=== PATIENT | female | born 1955 | race Caucasian/White ===

== ENCOUNTER → 2019-02-12 | Outpatient (CLI) | payer OTHER ==
[~2019-02-12] MED LIST: AMLODIPINE BESY10 MG PO; BENICAR40 MG PO; BIOTIN5000 MCG PO; CALCIUM 600 +1 EA13 PO; CLEOCIN HCL150 MG PO; DAILY MULTIPLE1 EACH PO; ENOXAPARIN40 MG/0.1 SUBQ; NORCO 5-325 TA1 EACH PO; TRAMADOL 50 MG50 MG PO; VITAMIN C500 M1 PO; VITAMIN D310000 UNI1 PO
== END ==
LOC: M.MRI 11:23
DX: S83.241A Other tear of medial meniscus, current injury, right knee, initial encounter (principal); M25.761 Osteophyte, right knee; M17.11 Unilateral primary osteoarthritis, right knee; X58.XXXA Exposure to other specified factors, initial encounter; Y93.89 Activity, other specified; Y92.89 Other specified places as the place of occurrence of the external cause; Y99.8 Other external cause status

== ENCOUNTER → 2019-02-22 | Outpatient (CLI) | payer OTHER ==
[~2019-02-22] MED LIST changes: +PERCOCET 5-3251 EACH PO; +SENNA S TABLET1 EACH PO; +XARELTO10 MG PO
== END ==
LOC: M.LAB 11:26
DX: I10 Essential (primary) hypertension (principal)

== ENCOUNTER 2019-03-06 06:29 | Inpatient (IN) | payer OTHER ==
[2019-02-22 09:40] LABS: HEMATOCRIT 37.2 % (37.0-47.0); HEMOGLOBIN 12.7 gm/dL (12.0-15.0); MCH 31.1 pg (26.0-34.0); MCHC 34.2 g/dL (28.0-37.0); MCV 90.9 fL (80.0-100.0); MPV 7.6 fl. (7.2-11.1); RBC 4.09 mil/uL (4.20-5.00); WBC 5.1 thou/uL (4.0-11.0)
[2019-02-22 09:52] LABS: PROTIME 10.3 Seconds (9.20-11.50)
[2019-02-22 09:56] LABS: ALBUMIN 3.3 g/dL (3.4-5.0); CALCIUM 9.4 mg/dL (8.5-10.1); CREATININE 0.8 mg/dL (0.6-1.3); POTASSIUM 3.7 mmol/L (3.5-5.1); TOTAL BILIRUBIN 0.4 mg/dL (<0.1-1.0); TOTAL PROTEIN 7.4 g/dL (6.4-8.2)
[2019-02-22 10:01] LABS: URINE BILIRUBIN NEGATIVE (Negative); URINE BLOOD NEGATIVE (Negative); URINE CLARITY CLEAR; URINE COLOR YELLOW; URINE GLUCOSE-RANDOM NEGATIVE (Negative); URINE KETONES NEGATIVE (Negative); URINE LEUKOCYTES-REFLEX NEGATIVE (Negative); URINE NITRITE-REFLEX NEGATIVE (Negative); URINE PROTEIN NEGATIVE (Negative); URINE SPECIFIC GRAVITY 1.015 (1.005-1.030); URINE UROBILINOGEN 0.2 E.U./dl (0.2-1.0)
--- NOTE | 2019-02-22 10:34 | EKG ---
[place] [address] ELECTROCARDIOGRAM REPORT Name: SULTANASAMI RAMIREZ Room: PRE IN .R.#: [id number] Admission: Attend Phys: Narcisa Murphy Discharge: Date of : 57 Report #: [id number] THIS REPORT FOR: //name// [facility] Test Date: 2019-02-22 Test Time: 09:49:09 Pat Name: SAMI WEINBERG Department: Room: Gender: F Social Science Research Assistant: : 1955 Requested By: Tree Ordonez Order Number: [id number] Reading MD: Mj Tracy Measurements Intervals [place] Rate: 64 P: 28 NC: 169 QRS: 12 QRSD: 91 T: 43 QT: 406 QTc: 419 Interpretive Statements Sinus rhythm Compared to ECG 06/30/2016 09:08:02 No significant changes Electronically Signed On 02-22-2019 10:34:12 [employer] WORK[employer] by Mj Tracy [email or web address] <ELECTRONICALLY SIGNED> By: Mj Tracy MD, [facility] 02/22/19 1034 0949 [id number] Mj Tracy MD, FACC /EPI
[~2019-03-06] VITALS: Ht 170.2 cm; Wt 93.0 kg
[~2019-03-06 06:29] MED LIST changes: -PERCOCET 5-3251 EACH PO; -SENNA S TABLET1 EACH PO; -XARELTO10 MG PO
[2019-03-06 09:00] VITALS: BP 107/57
[2019-03-06 14:20] VITALS: BP 115/54
--- NOTE | 2019-03-06 15:13 | NUR ---
PT ADMITTED FROM SURGERY WITH RT TOAL KNEE WITH DR. MCKEON. PT ALERT AND ORINETED ON 3 LITERS O2 WITH CAPNO. PULSES 2+. LUNGS CLEAR AND DIMINISHED. DRESSING C/D/I. POLAR PACK IN PLACE. FALL RISK PRECAUTIONS IN PLACE. WILL CONTINUE TO MONITOR.
[2019-03-06 15:51] VITALS: BP 114/64
--- NOTE | 2019-03-06 17:34 | NUR ---
pt remained alert and oriented. pt resting in bed. pain meds given as ordered. fall risk precautions in place. hourly rounding completed. will continue to monitor.
[2019-03-06 21:20] VITALS: BP 120/59
[2019-03-07] VITALS: BP 113/64
[2019-03-07 04:00] VITALS: BP 117/63
--- NOTE | 2019-03-07 04:24 | NUR ---
PATIENT SLEPT THROUGH MOST OF SHIFT. SHE IS ABLE TO GET TO BEDSIDE COMMODE WITH ASSISTANCE. REQUESTED PAIN MEDICATION AT BEDTIME. HR IS RUNNING 48-55 CONTINUOUS AND MONITORED. CHECKED HER BACK FOR ANY SKIN BREAKDOWN HER SKIN WAS APPROPRIATE IN COLOR NO SIGNS OF SKIN ISSUES. SHE RECEIVED ABX AND FLUIDS ORDERED. HOURLY ROUNDS MADE. PLAN TO D/C TO HOME HEALTH WITHIN A DAY OR TWO. WILL CONTINUE TO FOLLOW PLAN OF CARE.
[2019-03-07 04:33] LABS: ABSOLUTE LYMPHOCYTES 1.2 thou/uL (0.8-5.3); ABSOLUTE MONOCYTES 1.2 thou/uL (0.0-1.2); ABSOLUTE NEUTROPHILS 7.1 thou/uL (1.6-8.1); BASOPHILS 0.3 %; EOSINOPHILS 0.1 %; HEMATOCRIT 29.9 % (37.0-47.0); HEMOGLOBIN 10.3 gm/dL (12.0-15.0); LYMPHOCYTES 12.7 %; MCHC 34.6 g/dL (28.0-37.0); MCV 89.6 fL (80.0-100.0); MONOCYTES 12.4 %; MPV 7.6 fl. (7.2-11.1); NUCLEATED RBCS 0 /100WBC; PLATELET COUNT* 248 thou/uL (150-400); POLYS 74.5 %; RBC 3.33 mil/uL (4.20-5.00); RDW-CV 12.6 % (10.5-14.5); WBC 9.5 thou/uL (4.0-11.0)
[2019-03-07 04:46] LABS: CALCIUM 8.5 mg/dL (8.5-10.1); CREATININE 0.7 mg/dL (0.6-1.3); MAGNESIUM 1.9 mg/dL (1.8-2.4); POTASSIUM 3.7 mmol/L (3.5-5.1)
[2019-03-07 10:34] VITALS: BP 78/43
[2019-03-07 13:00] VITALS: BP 129/65
[2019-03-07 13:10] VITALS: BP 124/68
--- NOTE | 2019-03-07 16:00 | NUR ---
SPOKE WITH PT.IN ROOM. UP IN RECLINER. SAID SHE WAS HAVING A FAIR AMOUNT OF PAIN TODAY. GOT LIGHTHEADED DURING THERAPY. BP WAS LOW AND SHE FELT LIKE SHE WAS GOING TO FALL. THERAPIST RIGHT THERE. SHE SAID SHE LIVES ALONE. IS NORMALLY INDEPENDENT. HAS AA WALKER, QUAD CANE,SINGLE POINT CANE,TUB BENCH AND GRAB BARS. SHE NORMALLY DOESN'T USE ANY DEVICE WHEN AMBULATING. SHE SAID SHE HAS ALOT OF STAIRS . NO ONE IS ABLE TO STAY WITH HER. WOULD LIKE TO GO TO SNF AT [facility]. SHE SAID A FRIEND HAS BEEN THERE AND LIKED IT. REFERRAL FAXED TO [facility].
--- NOTE | 2019-03-07 17:45 | NUR ---
ASSUMED CARE OF PATIENT AT APPROX 0730. ALERT AND ORIENTED X4. ASSESSMENT COMPLETED AND CHARTED. VSS ON ROOM AIR. PAIN MANAGED WITH ORAL PAIN MEDICATION. NO COMPLAINTS OF NAUSEA. PATIENT DIZZY WITH MORNING THERAPY. BLOOD PRESSURE LOW, SEE CHARTING, BOLUS OF LR GIVEN WITH IMPROVED BLOOD PRESSUR. ORTHOSTATICS OBTAINED CONSISTANT WNL. PATIENT WORKED WELL WITH THERAPIES THIS AFTERNOON AND PROGRESSED TOWARD GOALS. NO OTHER COMPLAINTS THIS SHIFT. FALL PRECAUTIONS IN PLACE. CALL LIGHT WITHIN REACH. HOURLY ROUNDS COMPLETED. WILL CONTINUE WITH PLAN OF CARE.
[2019-03-07 19:20] VITALS: BP 123/49
--- NOTE | 2019-03-07 22:51 | NUR ---
INITAL ASSESMENT COMPLETED AT 1919. PT PLEASANT AND COOPERATIVE. PT IN CPM AT THAT TIME AT 60 DEGREES. HS MEDS GIVEN PER EMAR. PRN OXYCODONE GIVEN WITH HS MEDS. O2 SAT ON ROOM AIR 100%. CALL LIGHT IN REACH, PT USING PROPERLY.
--- NOTE | 2019-03-07 22:52 | OP ---
[facility] [address] [place] [address] OPERATIVE REPORT Name: SAMI WEINBERG Room: [address] M.R.#: [id number] Admission: 03/06/19 Attend Phys: Narcisa Murphy Discharge: Date of : 57 Report #: [id number] THIS REPORT FOR: //name// CC: David Feliciano DATE OF SERVICE: 03/06/2019 PREOPERATIVE DIAGNOSIS: Right knee osteoarthritis. POSTOPERATIVE DIAGNOSIS: Right knee osteoarthritis. PROCEDURE: Right total knee arthroplasty. SURGEON: Tree Ordonez II, DO. HOCKEY PLAYER: VIRGILIO Teixeira. ANESTHESIA: General endotracheal. ESTIMATED BLOOD LOSS: 50 mL. ANTIBIOTICS: Vancomycin preoperatively due to positive MRSA nares swab. DRAINS: Medium Hemovac. COMPLICATIONS: None. CONDITION: The patient is stable to recovery room. IMPLANTS: Listed in operative record and progress note. BRIEF HISTORY: The patient was seen in the preoperative area. Preoperative H and P was performed. Site was marked, questions were answered. Risks and benefits were discussed with the patient in detail about surgery. The patient wished to proceed, assuming all risks. OPERATIVE PROCEDURE: The patient was taken to the operative suite and placed supine on the operative table, given appropriate anesthesia. A well-padded tourniquet was applied to the upper thigh, which was inflated to 300 mmHg after gravity exsanguination. The operative knee was sterilely prepped and draped. Surgery began by midline incision. This was carried down to the subcutaneous tissues. A medial parapatellar arthrotomy was performed and carried down to bone. The patella was everted and excess soft tissue removed around the femur. The femur would not extend past 10 degrees and would not flex past [address] [address] OPERATIVE REPORT Name: SAMI WEINBERG Room: [address] IN [facility]#: [id number] Admission: 03/06/19 Attend Phys: Narcisa Murphy Discharge: Date of : 57 Report #: [id number] during her range of motion while the patient was asleep, due to significant osteophyte as well as quadriceps tightness, a small VMO snip was performed over the superior and lateral aspect of the patellar tendon to allow for more appropriate access to the knee joint. After excess osteophytes were removed from around the femur, femoral cutting block was then applied, checked with a drop yordan for rotational alignment, pinned into appropriate position and appropriate cuts were made. A 4-in-1 cutting block was then applied, checked for rotational alignment, pinned in appropriate position and appropriate cuts were made. The tibia was then exposed. Excess meniscus was removed. Retractor was placed on collateral ligaments. The tibial cutting block was applied, pinned in appropriate position, checked with a drop yordan for rotational alignment and slope and appropriate cut was made. The tibial bone was removed. The tibial base plate was applied, checked for rotational alignment with the drop yordan and pinned in appropriate position. The femur was then applied and box cut was reamed. This was then trialed with appropriate spacer, which showed excellent fit and fill and excellent stability of knee through all range of motion. The patella was then reamed in appropriate fashion and sized to appropriate size. Three peg holes were drilled and it was then trialed and showed excellent flexion, extension, excellent tracking of the patella within the groove. These trials were removed. The tibia was punched in appropriate fashion. Bone ends were cleansed with Pulsavac irrigation and cement was mixed and applied to final implants. These were then malleted into position and held the knee in extension and compressed to allow cement to cure. After it cured, excess was removed utilizing Hemlock and osteotome. The wound was then copiously irrigated and the final spacer was then malleted into position. The tourniquet was deflated. Hemostasis was obtained with electrocautery. Pain cocktail was injected. PRP gel was sprayed throughout internal aspects of the knee. Medium Hemovac drain was applied. The capsule was closed with #2 FiberWire and #1 Vicryl in [id number] fashion. Skin was closed with 2-0 Vicryl and running 3-0 Monocryl. Dermabond and sterile dressing applied. Luis wrap and PolarCare applied. The patient transported to recovery room in stable condition. Counts were correct throughout the procedure. <ELECTRONICALLY SIGNED> By: Tree Ordonez II, DO 03/07/19 2252 [id number] Ordonez II, DO /nt
[2019-03-08 04:12] LABS: HEMATOCRIT 28.9 % (37.0-47.0); HEMOGLOBIN 9.8 gm/dL (12.0-15.0)
[2019-03-08 07:30] VITALS: BP 143/78
--- NOTE | 2019-03-08 11:00 | NUR ---
[facility] HERE TO VISIT PT. SHE SAID THEY CAN ACCEPT HER WHEN READY FOR DISCHARGE. SPOKE WITH . HE SAID PT.IS READY FOR DISCHARGE IF [facility] CAN OBTAIN AUTHORIZATION. NOTIFIED [facility] PER PHONE.
[2019-03-08] MEDS ORDERED: XARELTO10 MG PO (13:23)
[2019-03-08] MEDS ORDERED: SENNA S TABLET1 EACH PO (13:24)
--- NOTE | 2019-03-08 14:47 | NUR ---
[facility] CALLED AND CAN ACCEPT PT.TODAY. THEY OBTAINED INSURANCE AUTH FOR HER TO COME TO A SNF BED. PT.INFORMED. SHE WILL LET HER FAMILY KNOW. FAXED DISCHARGE ORDERS TO [facility]. [facility] ARRANGED FOR . CHART COPIED TO GO WITH PT. NURSING TO CALL REPORT.
[2019-03-08] MEDS ORDERED: PERCOCET 5-3251 EACH PO (15:34)
[2019-03-08 15:36] VITALS: BP 143/78
--- NOTE | 2019-03-08 18:27 | NUR ---
[facility] ARE OF PATIENT AT APPROX 0730. ALERT AND ORIENTED X4. ASSESSMENT COMPLETED AND CHARTED. VSS ON ROOM AIR. PAIN MANAGED WITH ORAL OXY. PATIENT UP WITH ONE USING GAIT BELT AND WALKER. WORKED WELL WITH THERAPIES AND PROGRESSED TOWARD GOALS. PATIENT DISCHARGED AT 1745 WITH ALL PERSONAL BELONGINGS, PRESCRIPTIONS AND DISCHARGE PACKET. REPORT CALLED TO RN AT [facility].
== END 2019-03-08 17:45 | DRG 470 ==
LOC: M.PRE → M.TBA 08:37 → M.ORTHSURG 08:37 → M.PRE 09:09 → M.ORTHSURG 14:01 → M.PRE 14:49 → M.ORTHSURG 03-08 17:45
PROVIDERS: Family Medicine; Orthopaedic Surgery; ADMIT Internal Medicine
PROC: 3E0T3BZ Introduction of Anesthetic Agent into Peripheral Nerves and Plexi, Percutaneous Approach (ICD-10-PCS; principal; 2019-03-06)
PROC: 0SRC0J9 Replacement of Right Knee Joint with Synthetic Substitute, Cemented, Open Approach (ICD-10-PCS; principal; 2019-03-06)
DX: M17.11 Unilateral primary osteoarthritis, right knee (principal); D62 Acute posthemorrhagic anemia; I95.2 Hypotension due to drugs; T40.695A Adverse effect of other narcotics, initial encounter; Y92.230 Patient room in hospital as the place of occurrence of the external cause; I50.9 Heart failure, unspecified; I11.0 Hypertensive heart disease with heart failure; Z96.642 Presence of left artificial hip joint; Z93.2 Ileostomy status; Z88.0 Allergy status to penicillin; Z88.8 Allergy status to other drugs, medicaments and biological substances; Z79.899 Other long term (current) drug therapy; Z98.84 Bariatric surgery status; Z90.49 Acquired absence of other specified parts of digestive tract